=== PATIENT | female | born 1960 | race Caucasian/White ===

== ENCOUNTER 2017-01-21 02:45 | Emergency (ER) | payer OTHER ==
[~2017-01-21] VITALS: Ht 165.1 cm; Wt 62.1 kg
[2017-01-21] MEDS ORDERED: OMEPRAZOLE CAP 20MG (03:25)
[2017-01-21] MEDS ORDERED: ESCITALOPRAM 20 MG TABLET (03:25)
[2017-01-21] MEDS ORDERED: ATORVASTATIN TAB 40MG (03:25)
[2017-01-21] MEDS ORDERED: AMITRIPTYLINE 50 MG (03:25)
[2017-01-21] MEDS ORDERED: INSULIN (03:27)
[2017-01-21] MEDS ORDERED: IV 10% DEXTROSE 1,000 ML IV PRN (03:30)
--- NOTE | 2017-01-21 03:30 | NUR ---
Patient BIB [facility] for c/o hypoglycemia. Patient was reportedly found down by family members who beleived she would need CPR at the time they placed the call. Blood sugar in field was found to be "too low" to be read by the RA's accucheck. Patient arrives A/O x3, weak, diaphoretic, and had lost control of her bowels. To room 4A, patient cleaned and changed, RONAK performed MSE.
[2017-01-21 03:55] LABS: BASOPHILS % (AUTO) 0.2 % (0.0-2.0); EOSINOPHILS # (AUTO) 0.3 K/uL (0.0-0.7); EOSINOPHILS % (AUTO) 3.8 % (0.0-7.0); HEMATOCRIT 43.7 % (37-47); HEMOGLOBIN 14.1 G/DL (12.0-16.0); LYMPHOCYTES # (AUTO) 1.1 K/UL (0.8-4.8); LYMPHOCYTES % (AUTO) 15.9 % (20.5-51.5); MEAN CORPUSCULAR HEMOGLOBIN 29.9 UUG (27.0-31.0); MEAN CORPUSCULAR HGB CONC 32 g/dL (32.0-37.0); MONOCYTES # (AUTO) 0.4 K/UL (0.1-1.30); MONOCYTES % (AUTO) 6.3 % (0.0-11.0); NEUTROPHILS # (AUTO) 5.3 K/UL (1.8-8.9); NEUTROPHILS % (AUTO) 73.8 % (38.5-71.5); PLATELET COUNT (AUTO) 263 K/UL (150-450); WHITE BLOOD COUNT (AUTO) 7.1 K/UL (4.0-11.2)
[2017-01-21 03:59] LABS: CREATININE 0.6 mg/dL (0.6-1.3); POTASSIUM 3.8 mmol/L (3.5-5.1)
[2017-01-21 04:05] LABS: BILIRUBIN,DIRECT 0.1 mg/dL (0.0-0.2); BILIRUBIN,TOTAL 0.4 mg/dL (0.2-1.0); TOTAL PROTEIN, SERUM 6.6 g/dL (6.4-8.2)
[2017-01-21] MEDS ORDERED: ASPIRIN 81 MG TAB.CHEW PO ONE (05:00)
[2017-01-21] MEDS ORDERED: ASPIRIN 81 MG TAB.CHEW ONE (05:09)
[2017-01-21] MEDS ORDERED: FOLI1TAB16 PO (05:49)
[2017-01-21] MEDS ORDERED: OXYB5TAB11 PO (05:49)
[2017-01-21] MEDS ORDERED: MAGN400T6 PO (05:49)
[2017-01-21] MEDS ORDERED: ATOR40TA PO (05:49)
[2017-01-21] MEDS ORDERED: HYDR-548 PO (05:49)
[2017-01-21] MEDS ORDERED: CALC-20 PO (05:49)
[2017-01-21] MEDS ORDERED: ASPI-1169 PO (05:49)
[2017-01-21] MEDS ORDERED: INSU100V7 SQ (05:49)
[2017-01-21] MEDS ORDERED: CHOL200010 PO (05:49)
[2017-01-21] MEDS ORDERED: MULT1TAB73 PO (05:49)
[2017-01-21] MEDS ORDERED: GABA-532 PO (05:49)
[2017-01-21] MEDS ORDERED: BLOO-360 IN (05:49)
[2017-01-21] MEDS ORDERED: ALEN70TA45 PO (05:49)
--- NOTE | 2017-01-21 06:15 | NUR ---
Patient Tranfers to outside Facility Physician: Dr. Estrella Location: [facility]
--- NOTE | 2017-01-21 06:43 | NUR ---
Nishi obando in ED - 01/21/17 at 0643 by VICKY Patient Tranfers to outside Facility Physician: Dr. Estrella Location: [facility]
== END 2017-01-21 06:45 | disposition short-term general hospital (02) ==
LOC: ER 02:50
DX: I24.9 Acute ischemic heart disease, unspecified (principal); I10 Essential (primary) hypertension; F32.9 Major depressive disorder, single episode, unspecified; Z86.711 Personal history of pulmonary embolism; E11.9 Type 2 diabetes mellitus without complications; Z79.4 Long term (current) use of insulin
CPT/HCPCS: 36415; 70030-TC; 71010; 83605; 85025; 85730; 87040; 93005; A4663; J3490